=== PATIENT | male | born 1995 | race Hispanic/Latino ===

== ENCOUNTER 2020-06-21 17:31 | Emergency (ER) | payer BC, OTHER ==
[2020-06-21] MEDS ORDERED: ASPIRIN 325 MG TABLET ONE (18:56)
[2020-06-21 19:06] LABS: BASOPHILS % (AUTO) 0.5 % (0.0-5.0); EOSINOPHILS % (AUTO) 0.8 % (0.0-8.0); HEMATOCRIT 45.2 % (42-54); LYMPHOCYTES % (AUTO) 13.4 % (21.0-51.0); MEAN CORPUSCULAR HEMOGLOBIN 28.5 pg (27.0-33.0); MEAN CORPUSCULAR HGB CONC 33.2 g/dL (32.0-36.0); MEAN CORPUSCULAR VOLUME 85.8 fL (79-99); MONOCYTES % (AUTO) 5.7 % (3.0-13.0); NEUTROPHILS % (AUTO) 78.7 % (40.0-77.0); PLATELET COUNT (AUTO) 369 K/uL (130-400); RED BLOOD CELL COUNT(AUTO) 5.27 MIL/uL (4.50-6.20)
[2020-06-21 19:14] LABS: APPEARANCE,URINE Clear (CLEAR); BILIRUBIN,URINE Negative (NEGATIVE); COLOR,URINE Yellow (YELLOW); GLUCOSE, URINE (UA) Negative (NEGATIVE); KETONES,URINE Negative (NEGATIVE); LEUKOCYTE ESTERASE ,URINE Negative (NEGATIVE); NITRATE,URINE Negative (NEGATIVE); OCCULT BLOOD,URINE Negative (NEGATIVE); PROTEIN,URINE Negative (NEGATIVE)
[2020-06-21 19:22] LABS: AMPHET/METH SCREEN,URINE NEGATIVE (NEGATIVE); BARBITURATE SCREEN, URINE NEGATIVE (NEGATIVE); BENZODIAZEPINES SCREEN,URINE NEGATIVE (NEGATIVE); CANNABINOID SCREEN,URINE NEGATIVE (NEGATIVE); COCAINE SCREEN,URINE NEGATIVE (NEGATIVE); OPIATE SCREEN,URINE NEGATIVE (NEGATIVE); PHENCYCLIDINE SCREEN,URINE NEGATIVE (NEGATIVE)
[2020-06-21 19:22] LABS: CREATININE 1.2 mg/dL (0.5-1.5); POTASSIUM 3.9 mmol/L (3.5-5.1)
[2020-06-21 19:26] LABS: ALBUMIN 4.2 g/dL (3.5-5.0); BILIRUBIN,TOTAL 0.4 mg/dL (0.2-1.0)
== END 2020-06-21 20:22 | disposition home or self-care (01) ==
LOC: EDH 17:31
DX: R07.89 Other chest pain (principal)
CPT/HCPCS: 36415; 71045; 80053; 80305; 81003; 82550; 84484; 85025; 93005

== ENCOUNTER 2024-10-11 15:51 | Emergency (ER) | payer SELFPAY ==
[~2024-10-11] VITALS: Ht 180.3 cm; Wt 122.0 kg
[2024-10-11 16:53] VITALS: BP 125/68; PULSE 68; RESP 20; TEMP 98.5; O2SAT 98
[2024-10-11 16:57] LABS: ADD UA MICROSCOPIC YES; APPEARANCE,URINE CLEAR (CLEAR); BILIRUBIN,URINE NEGATIVE (NEGATIVE); COLOR,URINE LIGHT-YELLOW (YELLOW); GLUCOSE, URINE (UA) NEGATIVE (NEGATIVE); KETONES,URINE NEGATIVE (NEGATIVE); LEUKOCYTE ESTERASE ,URINE NEGATIVE Leu/uL (NEGATIVE); NITRATE,URINE NEGATIVE (NEGATIVE); OCCULT BLOOD,URINE NEGATIVE (NEGATIVE); PROTEIN,URINE NEGATIVE (NEGATIVE)
--- NOTE | 2024-10-11 16:57 | HMCIMG ---
Testicular ultrasound with color-flow Doppler Findings: The testes are of normal size and echogenicity. Vascular flow is preserved to both testes- there is no evidence of torsion. There is no evidence of inflammation. No fluid collections are seen. Specifically, there is no hydrocele. The epididymis is unremarkable bilaterally except for bilateral small epididymal head cysts. There is no evidence of varicoceles. Scrotal wall is normal in thickness bilaterally. Impression: Normal exam.
[2024-10-11 16:59] LABS: MUCUS,URINE RARE LPF (None Seen); WBC,URINE 0-1 /HPF (0-1)
--- NOTE | 2024-10-11 17:24 | ERN ---
General Chief Complaint: Testicular Injury/Pain Stated Complaint: TESTICULAR PAIN ONSET 6 DAYS AGO Time Seen by MD: 15:53 Time Seen by Midlevel: 15:53 Source: patient History of Present Illness Initial Comments The patient is a 29-year-old male presenting to the emergency department for evaluation of bilateral scrotal pain that started six days ago. Patient denies any direct injury to the area. Denies any penile discharge. He denies being sexually active at this time. Patient does not have a concern for a sexually transmitted disease. Patient has no other complaints at this time. Allergies: Coded Allergies: No Known Drug Allergies (Unverified Allergy, Unknown, 10/11/24) Past Medical History Past Medical History: No Pertinent History Past Surgical History: None ROS Dictation CONSTITUTIONAL: Negative except for HPI HEAD/FACE: Negative except for HPI EENT: Negative except for HPI RESPIRATORY: Negative except for HPI GASTROINTESTINAL/ABDOMINAL: Negative except for HPI GENITOURINARY: Negative except for HPI MUSCULOSKELETAL: Negative except for HPI INTEGUMENTARY: Negative except for HPI NEUROLOGICAL/PSYCH: Negative except for HPI HEMATOLOGIC/LYMPHATIC: Negative except for HPI All Systems Negative, Except as noted above. 13 point review of systems assessed and all negative except for above. Physical Exam Physical Exam Dictation Vital Signs reviewed General Appearance: Alert, oriented x 3, no acute distress, well developed, nourished. Head and Face: non-traumatic. Eyes: PERRL, pink conjunctivas, eyelid no trauma, anterior chamber with arcus senilis. Ears: Pinnas intact and no signs of trauma or erythema ear canals clear and no discharge TM no erythema Nose: No discharge, no bleeding. Oropharynx: Mouth normal, tongue pink, pharynx clear,no erythema, tonsils no exudates, no abscesses noted, mucous membrane moist Neck: Supple, non-tender, no thyromegaly, no masses, no JVD, no bruits Breast:Deferred Chest:No tenderness, no crepitus, no paradoxical movement, no retractions Lungs:Clear, well-ventilated, symmetric, no rales, no wheezing, no rhonchi, no stridor, good breath sounds bilaterally Heart: Regular rate, regular rhythm, no murmur, no gallops Vascular: no peripheral edema, Abdomen: Soft, positive bowel sounds, nondistended, no guarding, nontender, no rebound, no masses no hepatomegaly, no splenomegaly, no Spears's sign, no hernias. Rectal: Deferred Genital: Deferred Neurological: Normal speech, motor function intact, sensory function intact Musculoskeletal: Neck nontender, full range of motion, back nontender, full range of motion, Extremities: nontender, full range of motion Skin: Color pink, dry, no turgor, no rash, no lacerations, no abrasions, no contusions. Lymphatic: Deferred Results Laboratory and Microbiology Lab and Micro Result Laboratory Tests Test 10/11/24 16:50 Urine Color LIGHT-YELLOW (YELLOW) Urine Appearance CLEAR (CLEAR) Urine pH 7.0 (5.0-8.0) Urine Specific [place] 1.029 (1.001-1.031) Urine Protein NEGATIVE mg/dL (NEGATIVE) Urine Glucose (UA) NEGATIVE mg/dL (NEGATIVE) Urine Ketones NEGATIVE mg/dL (NEGATIVE) Urine Occult Blood NEGATIVE (NEGATIVE) Urine Nitrate NEGATIVE (NEGATIVE) Urine Bilirubin NEGATIVE mg/dL (NEGATIVE) Urine Urobilinogen 2.0 mg/dL (0.2-1.0) H Urine Leukocyte Esterase NEGATIVE Deondre/uL Urine RBC 2-5 /HPF (0-1) H Urine WBC 0-1 /HPF (0-1) Urine Bacteria None /HPF (None Seen) Labs Reviewed?: Yes MDM MDM: Differential diagnosis: Epididymitis, hydrocele, varicocele, urinary tract infection There are no social concerns with this patient. Prescription drug management Prescriptions will include: None Medical management and examination interpretation discussions were had by me with other qualified healthcare professionals as indicated for the patient's care. ED Course Orders Procedure Category Date Status Time Urinalysis Profile LAB 10/11/24 Complete 15:59 Us Scrotum & Contents US 10/11/24 Resulted 15:59 Vital Signs Date Time Temp Pulse Resp B/P (MAP) Pulse Ox O2 Delivery O2 Flow Rate FiO2 10/11/24 16:53 98.4 68 20 125/68 98 Room Air* 0 21 10/11/24 15:52 98.4 64 14 148/80 100 Room Air 0 [place] [address] [place] [id number] IMAGING REPORT Signed PATIENT: DARREL LOYA MR#: [id number] : 1995 SEX: M AGE: 29 LOCATION: [facility] ORDER 58 STATUS: REG ER REPORT#: [id number] SERVICE 58 REASON: bilateral testicular pain ORDERING PHYSICIAN: MONICO ONEILL PROCEDURE: SCROTUM - US SCROTUM & CONTENTS Testicular ultrasound with color-flow Doppler Findings: The testes are of normal size and echogenicity. Vascular flow is preserved to both testes- there is no evidence of torsion. There is no evidence of inflammation. No fluid collections are seen. Specifically, there is no hydrocele. The epididymis is unremarkable bilaterally except for bilateral small epididymal head cysts. There is no evidence of varicoceles. Scrotal wall is normal in thickness bilaterally. Impression: Normal exam. DICTATED BY: BA PITTS MD DATE: 10/11/241653 ELECTRONICALLY SIGNED BY: BA PITTS MD DATE: 10/11/241656 DX & DISP Disposition: Discharge Departure Impression: Primary Impression: Persistent testicular pain Condition: Stable Additional Instructions: Your urinalysis does not show any evidence of infection. Your scrotal ultrasound does not show any evidence of testicular torsion or any other acute abnormality. Your testicular ultrasound was normal. If you continue with persistent pain you may need to see a urologist for further evaluation. Follow up with your primary care doctor in 2-3 days for repeat evaluation. You may take Tylenol and Motrin as needed for pain. Referrals: JULIEN ARELLANO MD (PCP) EVIE WATSON MD I have reviewed the case, and I agree with, Diagnosis and Plan I performed the substantive portion of the visit. I have reviewed and personally made and approve the management plan that is documented in the note by myself or the PAMELA. I acknowledge for responsibility for the patient's management plan. MONICO ONEILL Oct 11, 2024 17:24
== END 2024-10-11 17:32 | disposition home or self-care (01) ==
LOC: EDH 15:51
DX: N50.811 Right testicular pain (principal); N50.812 Left testicular pain
CPT/HCPCS: 76870; 81001; 99284